=== PATIENT | female | born 1995 | race Caucasian/White ===

== ENCOUNTER 2018-12-13 17:23 | Emergency (ER) | payer OTHER ==
[2018-12-13 17:45] VITALS: BP 133/83
[2018-12-13 18:36] LABS: BASOPHILS % (AUTO) 0.3 %; EOSINOPHILS % (AUTO) 0.3 %; HGB - HEMOGLOBIN 12.9 g/dL (12.0-16.0); LYMPHOCYTES # (AUTO) 1.5 10^3/uL (1.5-3.5); LYMPHOCYTES % (AUTO) 19.6 %; MEAN CORPUSCULAR HGB CONC 33.4 g/dL (32.0-36.0); MEAN CORPUSCULAR VOLUME 89.8 fL (81.0-99.0); MEAN PLATELET VOLUME 10.5 fL (7.9-10.8); MONOCYTES # (AUTO) 0.4 10^3/uL (0.0-1.0); MONOCYTES % (AUTO) 5.1 %; NEUTROPHILS # (AUTO) 5.5 10^3/uL (1.5-6.6); NEUTROPHILS % (AUTO) 74.4 %; PLT - PLATELET COUNT 242 10^3/uL (130-450); RED CELL DISTRIBUTION WIDTH 12.4 % (12.0-15.0); WHITE BLOOD COUNT 7.4 x10^3/uL (4.8-10.8)
[2018-12-13 18:54] LABS: ACETAMINOPHEN < 10 ug/mL (10-30); ALBUMIN 4.5 g/dL (3.2-5.5); ALBUMIN/GLOBULIN RATIO 1.4 (1.0-2.2); ALKALINE PHOSPHATASE 38 IU/L (42-121); ALT ALANINE AMINOTRANSFERASE 11 IU/L (10-60); AST ASPARTATE AMINOTRANSFERASE 12 IU/L (10-42); BILIRUBIN,TOTAL 1.1 mg/dL (0.2-1.0); BUN - BLOOD UREA NITROGEN 8 mg/dL (6-20); CALCIUM 9.1 mg/dL (8.5-10.3); CARBON DIOXIDE - CO2 24 mmol/L (21-32); CHLORIDE 105 mmol/L (101-111); CREATININE 0.5 mg/dL (0.4-1.0); GFR - MDRD 152 (>89); GLUCOSE 96 mg/dL (70-100); LIPASE 34 U/L (22-51); SALICYLATE < 6.0 mg/dL; SODIUM 140 mmol/L (135-145); TOTAL PROTEIN 7.8 g/dL (6.7-8.2)
--- NOTE | 2018-12-13 19:10 | ED Physician Documentation ---
PD HPI MHE - Stated complaint Stated Complaint: SI - Chief complaint Chief Complaint: MHE - History obtained from History obtained from: Patient - History of Present Illness Primary symptom: Other (She has had a tough couple of weeks. She miscarried and then broke up with her boyfriend. She mentioned to 1 of her coworkers that she like to go to sleep and not wake back up. She has not been suicidal though. There is no plan. No history of depression. She looks forward to seeing a counselor for her grief reaction tomorrow.) Review of Systems Constitutional: reports: Reviewed and negative Throat: reports: Reviewed and negative Cardiac: reports: Reviewed and negative Respiratory: reports: Reviewed and negative PD PAST MEDICAL HISTORY - Allergies Allergies/Adverse Reactions: Allergies Allergy/AdvReac Type Severity Reaction Status Date / Time No Known Drug Allergies Allergy Verified 12/13/18 17:39 - Social History Does the pt smoke?: No Smoking Status: Never smoker PD ED PE NORMAL - Vitals Vital signs reviewed: Yes - General General: Alert and oriented X 3, No acute distress - HEENT HEENT: PERRL, EOMI - Neck Neck: Supple, no meningeal sign, No bony TTP - Neuro Neuro: Alert and oriented X 3, 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, No motor deficit, Normal speech - Psych Psych: Normal mood, Normal affect Results - Vitals Vitals: Vital Signs - 24 hr 12/13/18 17:39 Temperature 36.5 C Heart Rate 93 Respiratory 16 Rate Blood Pressure 133/83 H O2 Saturation 98 Oxygen O2 Source Room air - Labs Labs: Laboratory Tests 12/13/18 12/13/18 12/13/18 18:30 18:30 18:30 WBC 7.4 RBC 4.30 Hgb 12.9 Hct 38.6 MCV 89.8 MCH 30.0 MCHC 33.4 RDW 12.4 Plt Count 242 MPV 10.5 Neut # (Auto) 5.5 Lymph # (Auto) 1.5 [place]ie # (Auto) 0.4 Eos # (Auto) 0.0 Baso # (Auto) 0.0 Absolute Nucleated RBC 0.00 Nucleated RBC % 0.0 Sodium 140 Potassium 3.9 Chloride 105 Carbon Dioxide 24 Anion Gap 11.0 BUN 8 Creatinine 0.5 Estimated GFR (MDRD) 152 Glucose 96 Calcium 9.1 Total Bilirubin 1.1 H AST 12 ALT 11 Alkaline Phosphatase 38 L Total Protein 7.8 Albumin 4.5 Globulin 3.3 Albumin/Globulin Ratio 1.4 Lipase 34 TSH 0.24 L Salicylates < 6.0 Acetaminophen < 10 L Ethyl Alcohol < 5.0 PD MEDICAL DECISION MAKING - ED course Complexity details: reviewed old records ED course: 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 She is not actually suicidal but having a grief reaction. No reason to consider hospitalization, offered as an outpatient but she declined. Departure - Departure Disposition: 01 Home, Self Care Clinical Impression: Grief reaction Condition: Good Record reviewed to determine appropriate education?: Yes Instructions: ED Stress React Comments: Follow-up with a counselor tomorrow. Return for new or worsening symptoms.
== END 2018-12-13 19:14 | disposition home or self-care (01) ==
LOC: ED 17:23
DX: F43.20 Adjustment disorder, unspecified (principal)
CPT/HCPCS: 36415; 80053; 80307; 80320; 80329; 83690; 84443; 85025; 99283

== ENCOUNTER 2019-04-28 10:58 | Emergency (ER) | payer OTHER ==
[2019-04-28 11:06] VITALS: BP 118/73
--- NOTE | 2019-04-28 11:26 | ED Physician Documentation ---
PD HPI UPPER EXT INJURY - Stated complaint Stated Complaint: RT WRIST PX - Chief complaint Chief Complaint: Ext Problem - History obtained from History obtained from: Patient - History of Present Illness Location: Right, Wrist Type of injury: Fall Where injury occurred: Other (Skiing) Timing - onset: Yesterday Timing - details: Abrupt onset Worsened by: Moving, Palpating Associated symptoms: Swelling, Discolored. 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 She had immediate pain in the wrist. She tried to keep snowboarding but she fell again and then the pain was much worse and she had to quit. She did not injure herself otherwise. No prior injury to that wrist. She took ibuprofen for it yesterday and iced it. No numbness or tingling into the fingers. She is right- handed. Review of Systems Skin: reports: Other (Swelling and bruising to the back of the right hand) Musculoskeletal: reports: Extremity pain (Right hand and wrist. Denies elbow or shoulder pain.) Neurologic: denies: Focal weakness, Numbness PD PAST MEDICAL HISTORY - Present Medications Home Medications: Ambulatory Orders Medication Instructions Recorded Confirmed No Known Home Medications 04/28/19 04/28/19 - Allergies Allergies/Adverse Reactions: Allergies Allergy/AdvReac Type Severity Reaction Status Date / Time No Known Drug Allergies Allergy Verified 04/28/19 11:06 - Social History Does the pt smoke?: No Smoking Status: Never smoker PD ED PE NORMAL - Vitals Vital signs reviewed: Yes - General General: Alert and oriented X 3, No acute distress, Well developed/nourished - Extremities Extremities: Other (Right elbow has free range of motion and is nontender. The right wrist has limited range of motion and there is snuffbox tenderness. There is swelling to the dorsal aspect of the right hand with discoloration and bruising. There is tenderness to palpation across the dorsal aspect of the hand but not with palpation in the palmar surface. She is able to make a fist, and can abduct the pinky and thumb. Sensation is intact to light touch in the fingers and capillary refills less than 2 seconds.) Results - Vitals Vitals: Oxygen O2 Source Room air - Rads (name of study) R wrsit Radiology: EMP read contemporaneously (There is some soft tissue swelling but no obvious fracture in the wrist. These images do include the metacarpal bones and there is no noted fracture.), See rad report PD MEDICAL DECISION MAKING - ED course Complexity details: reviewed results, d/w patient ED course: Imaging does not show any fracture in the hand or fracture of the wrist. She will be placed in a cock-up splint for comfort and to rest. [facility] for reevaluation in 7 to 10 days. Departure - Departure Disposition: 01 Home, Self Care Clinical Impression: Sprain of wrist, right Qualifiers: Encounter type: initial encounter Qualified Code(s): S63.501A - Unspecified sprain of right wrist, initial encounter Condition: Good Instructions: ED Sprain Wrist Follow-Up: ALEJANDRA Rueda [Provider Group] Comments: Wear the splint for comfort. May remove it to shower or perform hygiene. Ice the wrist and back of the hand for comfort. Take ibuprofen 3 to 4 tablets every 8 hours with food as needed for pain. [place]. Forms: Activity restrictions Discharge Date/Time: 04/28/19 11:41
--- NOTE | 2019-04-28 11:54 | XRAY Report ---
Reason: Trauma, swollen/bruised Procedure Date: 04/28/2019 Accession Number: [id number] / [id number] Procedure: XR - Wrist 4 View RT CPT Code: Final Report FULL RESULT: EXAM: RIGHT WRIST RADIOGRAPHY EXAM DATE: 04/28/2019 11:21 AM. CLINICAL HISTORY: Trauma, swollen/bruised. COMPARISON: None. TECHNIQUE: 4 views. FINDINGS: Bones: No fracture or focal bony lesion. Joints: No evidence of dislocation. Soft Tissues: No unexpected soft tissue findings. IMPRESSION: No evidence of fracture or dislocation. [facility]
== END 2019-04-28 11:41 | disposition home or self-care (01) ==
LOC: ED 10:58
DX: S69.91XA Unspecified injury of right wrist, hand and finger(s), initial encounter (principal); W00.0XXA Fall on same level due to ice and snow, initial encounter; Y93.23 Activity, snow (alpine) (downhill) skiing, snowboarding, sledding, tobogganing and snow tubing
CPT/HCPCS: 99283